=== PATIENT | male | born 1990 | race African-American/Black ===

== ENCOUNTER 2018-01-23 19:30 | Emergency (ER) | payer SELFPAY ==
[2018-01-23 19:59] LABS: BILIRUBIN,URINE NEGATIVE (NEG); CLARITY,URINE CLEAR; COLOR,URINE YELLOW; GLUCOSE,URINE NEGATIVE (NEG); NITRITE,URINE NEGATIVE (NEG); PROTEIN,URINE NEGATIVE (NEG-TRACE)
[2018-01-23] MEDS: AZITHROMYCIN 250 MG TABLET. PO (20:00)
[2018-01-23] MEDS: metroNIDAZOLE 500 MG TABLET PO (20:00)
[2018-01-23] MEDS: cefTRIAXone IM 250 MG VIAL IM (20:01)
[2018-01-23 20:12] LABS: BACTERIA,URINE 0 /HPF (0-FEW); RBC,URINE OCC /HPF (0-2)
== END 2018-01-23 20:21 | disposition home or self-care (01) ==
LOC: ER 20:21
DX: Z20.2 Contact with and (suspected) exposure to infections with a predominantly sexual mode of transmission (principal); F12.10 Cannabis abuse, uncomplicated
CPT/HCPCS: 81001; 87491; 87591; 96372; 99284; J0696; Q0144